=== PATIENT | female | born 1930 ===

== ENCOUNTER 2017-05-03 10:02 | Outpatient (CLI) | payer OTHER | END 2017-05-03 13:43 | disposition home or self-care (01) | LOC: MAMO-SONO 10:02 | DX: Z12.31 Encounter for screening mammogram for malignant neoplasm of breast (principal); Z87.898 Personal history of other specified conditions; N64.89 Other specified disorders of breast; M25.512 Pain in left shoulder; M25.511 Pain in right shoulder ==

== ENCOUNTER 2017-06-09 09:39 | Outpatient (CLI) | payer OTHER | END 2017-06-09 09:58 | disposition home or self-care (01) | LOC: NUCLEAR 09:39 | DX: C50.412 Malignant neoplasm of upper-outer quadrant of left female breast (principal) | CPT/HCPCS: 78472; 78496; A9560 ==

== ENCOUNTER → 2017-06-22 | Outpatient (CLI) | payer OTHER | END | disposition home or self-care (01) | LOC: NUCLEAR 08:00 | DX: C50.412 Malignant neoplasm of upper-outer quadrant of left female breast (principal); M84.5 Pathological fracture in neoplastic disease | CPT/HCPCS: 78815; A9552 ==